=== PATIENT | male | born 1975 ===

== ENCOUNTER 2018-09-05 01:07 | Emergency (ER) | payer BC ==
[2018-09-05] MEDS ORDERED: Sodium Chloride 0.9% 1,000 ML IV ONE (01:38)
[2018-09-05 02:07] VITALS: TEMP 98.2
[2018-09-05] MEDS ORDERED: Sodium Chloride 0.9% 1,000 ML ONE (02:07)
--- NOTE | 2018-09-05 02:12 | C.PDOC ---
History Of Present Illness 43 year old male with PMHx of pulmonic valve repair 2 years ago presents to the ED c/o headache, abdominal discomfort, diarrhea, non productive cough, and sore throat for the past 4 days. Patient states symptoms improved but headache started today. Patient denies fever, chills, CP, SOB, palpitations, rash, dysuria, hematuria, weakness, numbness. Time Seen by Provider: 09/05/18 01:20 Chief Complaint (Nursing): Back Pain History Per: Patient History/Exam Limitations: no limitations Onset/Duration Of Symptoms: Days (4) Current Symptoms Are (Timing): Still Present Quality Of Discomfort: "Pain" Recent travel outside of the [place]: No Additional History Per: Patient Past Medical History Reviewed: Historical Data, Nursing Documentation, Vital Signs Vital Signs: Last Vital Signs Temp 98.2 F 09/05/18 01:16 Pulse 93 H 09/05/18 01:16 Resp 22 09/05/18 01:16 BP 131/86 09/05/18 01:16 Pulse Ox 90 L 09/05/18 01:16 - Medical History PMH: No Chronic Diseases Denies: Chronic Kidney Disease Surgical History: Appendectomy Other Surgeries: Pulmonic valve repair 2 years ago Family History: States: Unknown Family Hx - Social History Hx Alcohol Use: No Hx Substance Use: No - Immunization History Hx Tetanus Toxoid Vaccination: No Hx Influenza Vaccination: No Hx Pneumococcal Vaccination: No Review Of Systems Constitutional: Negative for: Fever, Chills ENT: Positive for: Throat Pain. Negative for: Throat Swelling Cardiovascular: Negative for: Chest Pain, Palpitations Respiratory: Positive for: Cough. Negative for: Shortness of Breath Gastrointestinal: Positive for: Abdominal Pain, Diarrhea. Negative for: Nausea, Vomiting Skin: Negative for: Rash Neurological: Positive for: Headache. Negative for: Weakness, Numbness Physical Exam - Physical Exam Appears: Non-toxic, Other (mild uncomfortable) Skin: Normal Color, Warm, Dry Head: Atraumatic, Normacephalic Eye(s): bilateral: Normal Inspection Ear(s): Bilateral: Normal Oral Mucosa: Moist Throat: Normal, No Erythema, No Exudate Neck: Normal ROM, Supple Chest: Symmetrical Cardiovascular: Rhythm Regular, Murmur (systolic 3/6) Respiratory: Normal Breath Sounds, No Rales, No Rhonchi, No Wheezing, Other (speaking in full sentences) Gastrointestinal/Abdominal: Soft, No Tenderness, No Guarding, No Rebound Back: No CVA Tenderness Extremity: Normal ROM, No Tenderness, No Swelling Neurological/Psych: Oriented x3, Normal Speech, Normal Cognition Gait: Steady ED Course And Treatment - Laboratory Results Result Diagrams: 09/05/18 02:20 09/05/18 02:20 O2 Sat by Pulse Oximetry: 90 - CT Scan/US CTA CHEST Other Rad Studies (CT/US): Read By Radiologist, Radiology Report Reviewed CT/US Interpretation: Name:LUTHER KNIGHT Exam Date:Sep 05, 2018 4:04:12 AM EST. Modality Type:CT\\SR. Description:CTA CHEST FOR PE. Gender:M Laterality:Not applicable. :73 Referring Physician:TREVIN SHARMA MD. CTA OF THE CHEST WITH IV CONTRAST. CLINICAL HISTORY: Hypoxia, rule out PE. TECHNIQUE: Axial and reformatted sagittal and coronal images of the chest obtained after bolus IV contrast administration. FINDINGS: Enlarged main pulmonary artery. Normal enhancement of the main pulmonary artery and right and left pulmonary arteries. Normal enhancement of the bilateral peripheral pulmonary arteries. There is no demonstrated pulmonary embolism. Normal thoracic aorta and visualized great vessels. There is no demonstrated aortic dissection. Normal heart and pericardium. Normal mediastinum. Normal hilar regions. Normal visualized trachea and bronchi. Bilateral multifocal groundglass densities of the lungs more prominent in the lower lobes. Normal pleura. Normal chest wall structures. Mild chronic changes of Scheuermann's disease. Normal visualized upper abdomen. IMPRESSION: No demonstrated pulmonary embolism or arterial dissection. Enlarged main pulmonary artery, probably pulmonary arterial hypertension. Bilateral multifocal groundglass densities in the lower lobes. Probably infectious/inflamm atory pathology. . Electronically signed on Sep 05, 2018 5:09:20 AM EST by: John Vieira M.D., Certified by ABR, MSK, Neuroradiology. Progress Note: Blood work, CXR, UA, influenza swab ordered and reviewed. Patient persistently midlly hypoxic - CTA chest ordered. Disposition Counseled Patient/Family Regarding: Studies Performed, Diagnosis, Need For Followup, Rx Given - Disposition Referrals: [facility] [Outside] Disposition Time: 05:15 Condition: STABLE Additional Instructions: FOLLOW UP WITH YOUR DOCTOR IN 1-2 DAYS, AND WITH YOUR CLINICAL PRODUCT SPECIALIST WITHIN 1 WEEK USE MEDICATIONS NEEDED DRINK PLENTY OF FLUIDS RETURN TO EMERGENCY ROOM IF YOUR SYMPTOMS BECOME WORSE HERMELINDA SEGUIMIENTO CON GIBBS MDICO EN 1-2 ISBELL Y CON GIBBS CARDILOGO DENTRO DE 1 SEMANA UTILICE MEDICAMENTOS RENE SE NECESITE BEBER MUCHO LQUIDO VUELVA A LA GEE DE EMERGENCIA SI DENICE SNTOMAS SE HACEN PEOR Prescriptions: Benzonatate [Tessalon Perles] 100 mg PO BID PRN #15 sgl PRN Reason: Cough Dicyclomine [Bentyl] 20 mg PO Q6 PRN #12 tab PRN Reason: ABDOMINAL CRAMPING Naproxen 375 mg PO BID PRN #20 tablet PRN Reason: pain Instructions: Viral Syndrome (DC) Print Language: ITALIAN - Clinical Impression Clinical Impression: Viral syndrome - Scribe Statement The provider has reviewed the documentation as recorded by the Scribe Demetrio Dominguez All medical record entries made by the Scribe were at my direction and personally dictated by me. I have reviewed the chart and agree that the record accurately reflects my personal performance of the history, physical exam, medical decision making, and the department course for this patient. I have also personally directed, reviewed, and agree with the discharge instructions and disposition.
[2018-09-05 02:23] LABS: BASO % 0.4 % (0.0-2.0); HEMOGLOBIN 19.1 g/dL (12.0-18.0); LYMPH # 0.9 K/uL (1.0-4.3); LYMPH % 23.9 % (20.0-40.0); MEAN CELL VOLUME 87.7 fL (80.0-94.0); MEAN CORPUSCULAR HGB CONC 34.2 g/dL (33.0-37.0); MEAN PLATELET VOLUME 8.3 fL (7.2-11.7); MONO # 0.4 K/uL (0.0-0.8); MONO % 12.3 % (0.0-10.0); NEUT # 2.3 K/uL (1.8-7.0); NEUT % 63.4 % (50.0-75.0); NRBC % 0.4 % (0.0-2.0); RBC 6.37 Mil/uL (4.40-5.90); RED CELL DISTRIBUTION WIDTH 13.3 % (11.5-14.5); WHITE BLOOD COUNT 3.6 K/uL (4.8-10.8)
[2018-09-05 02:26] LABS: SQUAMOUS EPITHIAL < 1 /hpf (0-5); URINE AMORPHOUS SEDIMENT OCC /ul (<OCC); URINE BACTERIA RARE (<OCC); URINE BILIRUBIN NEGATIVE (NEGATIVE); URINE BLOOD 1+ (NEGATIVE); URINE CLARITY Hazy (Clear); URINE COLOR Yellow (YELLOW); URINE GLUCOSE (UA) NORMAL (Normal); URINE LEUKOCYTE ESTERASE NEG Leu/uL (Negative); URINE PROTEIN NEGATIVE (NEGATIVE); URINE UROBILINOGEN NORMAL mg/dL (0.2-1.0)
[2018-09-05 02:34] LABS: ALB/GLOB RATIO 1.5 (1.0-2.1); ALBUMIN 4.8 g/dL (3.5-5.0); ALT/SGPT 63 U/L (21-72); AST/SGOT 54 U/L (17-59); BLOOD UREA NITROGEN 9 mg/dL (9-20); CALCIUM 8.7 mg/dl (8.6-10.4); GFR NON-AFRICAN AMERICAN > 60; LIPASE 241 U/L (23-300)
[2018-09-05] MEDS ORDERED: Iodixanol 320 MG/ML 100 ML BOTTLE IV ONE (03:51)
[2018-09-05 04:53] VITALS: BP 120/75; PULSE 84; RESP 12
[2018-09-05 05:12] VITALS: O2SAT 90
--- NOTE | 2018-09-05 09:54 | CT ---
Date of service: 09/05/2018 PROCEDURE: CT Chest with contrast (Pulmonary Angiogram) HISTORY: hypoxia, r/o pe COMPARISON: None available. TECHNIQUE: Axial computed tomography images were obtained of the chest in the pulmonary arterial phase of enhancement. Coronal and sagittal reformatted images were created and reviewed. Intravenous contrast dose: Radiation dose: Total exam DLP = 602.77 mGy-cm. This CT exam was performed using one or more of the following dose reduction techniques: Automated exposure control, adjustment of the mA and/or kV according to patient size, and/or use of iterative reconstruction technique. FINDINGS: PULMONARY ARTERIES: Unremarkable. No pulmonary embolism. AORTA: No acute findings. No thoracic aortic aneurysm. No aortic atherosclerotic calcification or mural plaque present. LUNGS: Scattered bilateral ground-glass density opacities likely infectious or inflammatory etiology. PLEURAL SPACES: Unremarkable. No effusion or pneumothorax. HEART: Unremarkable. No cardiomegaly. No significant pericardial effusion. LYMPH NODES: No lymphadenopathy. BONES, CHEST WALL: Unremarkable. No fracture or destructive lesion OTHER FINDINGS: Unremarkable. IMPRESSION: Scattered bilateral ground-glass density opacities likely infectious or inflammatory etiology.
--- NOTE | 2018-09-05 10:55 | RAD ---
HISTORY: COUGH COMPARISON: Chest x-ray performed 09/05/18, subsequent CTA of the chest performed 09/05/18 TECHNIQUE: Chest, one view. FINDINGS: LUNGS: No focal consolidation. Please note that chest x-ray has limited sensitivity for the detection of pulmonary masses. PLEURA: No significant pleural effusion identified. No definite pneumothorax . CARDIOVASCULAR: Cardiomegaly. Prominence of the mediastinum may be related to ectatic aorta as well as severe enlargement of the main pulmonary artery trunk. OSSEOUS STRUCTURES: No acute osseous abnormality identified. VISUALIZED UPPER ABDOMEN: Unremarkable. OTHER FINDINGS: None. IMPRESSION: Cardiomegaly. Enlargement of the mediastinum consistent with ectatic aorta as well as severely enlarged main pulmonary artery trunk which is seen on subsequent CT of the chest 09/05/18; somewhat obscured by motion artifact. Recommend clinical correlation for pulmonary arterial hypertension and appropriate follow-up. Study marked for PA review.
== END 2018-09-05 05:28 | disposition home or self-care (01) ==
LOC: EDBD 01:07 → C.ER 01:07
DX: B34.9 Viral infection, unspecified (principal)
CPT/HCPCS: 36415; 71045; 71275; 80053; 81001; 83690; 85025; 87804; 96361; 96374; 99285; J1885; J7030; Q9967